=== PATIENT | male | born 1995 | race African-American/Black ===

== ENCOUNTER 2017-11-11 13:45 | Emergency (ER) | payer SELFPAY ==
[~2017-11-11] VITALS: Ht 185.4 cm; Wt 61.2 kg
[~2017-11-11 13:45] MED LIST: CIPR500T94 PO
[2017-11-11 14:08] VITALS: BP 131/92
[2017-11-11] MEDS ORDERED: HYDR-2758 PO (14:24)
[2017-11-11] MEDS ORDERED: NAPR-683 PO (14:24)
[2017-11-11] MEDS ORDERED: PENI500T PO (14:24)
--- NOTE | 2017-11-11 14:25 | PHYS DOC ---
Past Medical History Past Medical History: Other Additional Past Medical Histor: ulcers Past Surgical History: Other Additional Past Surgical Histo: colonoscopy Additional Information: pt denies 11/11/17 Alcohol Use: None Drug Use: Marijuana Social History Narrative: pt denies 11/11/17 Adult General Chief Complaint Chief Complaint: DENTAL PROBLEM HPI HPI Patient is a pleasant 21 year-old male with a known history of dental problems in the past presents with dental pain that began one week ago. He first noted it when eating hot and cold foods as a throbbing pain intermittently in the upper right jaw and right lower jaw. It is over specific tooth that has been causing problems. He denies any gingival trauma or gingival swelling. He further denies any problems swallowing, neck pain, change in voice , sore throat, ear pain, or other symptoms. He denies any drug use, denies any antibiotic use, and does not have relationship with a local dentist. Pain right now is moderate 3-of 10 Review of Systems Review of Systems Constitutional: Denies fever or chills [] Eyes: Denies change in visual acuity, redness, or eye pain [] HENT: Denies nasal congestion or sore throat denies any ear pain or ear drainage. [] Respiratory: Denies cough or shortness of breath [] Cardiovascular: No additional information not addressed in HPI [] Integument: Denies rash or skin lesions [] Neurologic: Denies headache, focal weakness or sensory changes [] All other systems were reviewed and found to be within normal limits, except as documented in this note. Allergies Allergies Allergies Coded Allergies Type Severity Reaction Last Updated Verified No Known Drug Allergies 03/07/15 No Physical Exam Physical Exam Other vital signs recorded on the chart within normal limits. Constitutional: Well developed, well nourished, no acute distress, non-toxic appearance. [] HENT: Normocephalic, atraumatic, bilateral external ears normal, oropharynx moist, no oral exudates, patient has dental caries with prior fillings noted and specifically into 345. He has percussive tenderness to palpation over tooth #4 with no obvious gingival swelling. Patient also has fillings in tooth 31 and 30 patient has tenderness to palpation over tooth #30. Again there is no gingival swelling, no involvement of the buccal mucosa.[] Neck: Normal range of motion, no tenderness, supple, no stridor. [] Skin: Warm, dry, no erythema, no rash. [] Neurologic: Alert and oriented X 3, patient's cranial nerves II-12 are intact patient has no change in voice[] Psychologic: Affect normal, judgement normal, mood normal. [] Current Patient Data Vital Signs Vital Signs Date Time Temp Pulse Resp B/P (MAP) Pulse Ox O2 Delivery O2 Flow Rate FiO2 11/11/17 14:08 98.1 88 18 99 Room Air 98.1 EKG EKG [] Radiology/Procedures Radiology/Procedures [] Course & Med Decision Making Course & Med Decision Making Pertinent Labs and Imaging studies reviewed. (See chart for details) [] Dragon Disclaimer Dragon Disclaimer This electronic medical record was generated, in whole or in part, using a voice recognition dictation system. Departure Departure Impression: Primary Impression: Dental caries Additional Impression: Pulpitis Disposition: HOME, SELF-CARE Condition: IMPROVED Referrals: NO PCP (PCP) Patient Instructions: Dental Caries Additional Instructions: discharge: I've spoken with the patient and/or caregivers. I've explained the patient's condition, diagnosis and treatment plan based on information available to me at this time. I've answered the patient's and/or caregivers questions and addressed any concerns. The patient and/or caregivers have a good understanding the patient's diagnosis, condition and treatment plan as can be expected at this point. Vital signs have been stabilized. The patient's condition is stable for discharge from the emergency department. The patient will pursue further outpatient evaluation with her primary care provider or other designated consulting physician as outlined in the discharge instructions. Patient and/or caregivers are agreeable to this plan of care and follow-up instructions have been explained in detail. The patient and/or caregivers have received these instructions in written format and expressed understanding of these discharge instructions. The patient and her caregivers are aware that if any significant change in condition or worsening of symptoms should prompt him to immediately return to this of the closest emergency department. If an emergent department is not readily available I would encourage him to call 911. He also given a list of dental clinics second help treat your symptoms pulpitis/ dental caries definitively. Scripts Penicillin V Potassium (PENICILLIN V POTASSIUM) 500 Mg Tablet 1 TAB PO QID, #40 TAB Prov: LUCI HERRERA MD 11/11/17 Naproxen (NAPROSYN) 500 Mg Tablet 1 TAB PO BID, #14 TAB 1 Refill Prov: LUCI HERRERA MD 11/11/17 Hydrocodone Bit/Acetaminophen (HYDROCODONE-APAP 5-325 ) 1 Each Tablet 1-2 TAB PO PRN Q6HRS Y for PAIN for 5 Days, #10 TAB 0 Refills Prov: LUCI HERRERA MD 11/11/17 Problem Qualifiers LUCI HERRERA MD Nov 11, 2017 14:25
== END 2017-11-11 14:36 | disposition home or self-care (01) ==
LOC: ER 13:45
DX: K02.9 Dental caries, unspecified (principal); K04.01 Reversible pulpitis; F12.10 Cannabis abuse, uncomplicated
CPT/HCPCS: 99283